=== PATIENT | male | born 1960 | race Caucasian/White ===

== ENCOUNTER 2017-12-04 09:23 | Emergency (ER) | payer BC, SELFPAY ==
[2017-12-04 09:33] VITALS: BP 158/75; PULSE 78; RESP 18; TEMP 36.7; O2SAT 98; BMI 65.4
[2017-12-04 09:59] LABS: Basophils # 0.1 K/mm3 (0-0.2); Basophils % 0.5 % (0.1-2.0); Eosinophils # 0.2 K/mm3 (0.0-0.4); Eosinophils % 2.7 % (0.1-12.0); Hematocrit 45.2 % (42.0-52.0); Lymphocytes # 4.2 K/mm3 (0.7-4.5); Lymphocytes % 47.3 K/mm3 (10-50); Mean Corpuscular HGB Conc 33.2 g/dL (31.8-35.4); Mean Corpuscular Hemoglobin 32.2 pg (27.0-31.2); Mean Platelet Volume 7.5 fl (7.4-10.4); Monocytes # 0.4 K/mm3 (0.1-1.0); Monocytes % 4.4 % (1.7-9.3); Platelet Count 236 K/mm3 (142-424); Red Blood Count 4.66 M/mm3 (4.60-6.20); Red Cell Distribution Width 12.7 % (11.5-17.5); White Blood Count 8.8 K/mm3 (4.8-10.8)
[2017-12-04 10:44] LABS: Alanine Aminotransferase 33 U/L (12-78); Albumin/Globulin Ratio 1.1 (1.1-1.8); Alkaline Phosphatase 61 U/L (46-116); Anion Gap 12.1 mEq/L (5-15); Aspartate Amino Transferase 23 U/L (15-37); Bilirubin,Total 0.4 mg/dL (0.2-1.0); Blood Urea Nitrogen 15 mg/dL (7-18); CKMB Relative Index 1.5 U/L (0-4.0); Calcium 8.6 mg/dL (8.5-10.1); Carbon Dioxide 25 mmol/L (21.0-32.0); Chloride 105 mmol/L (98-107); Creatine Kinase 131 U/L (39-308); Creatine Kinase MB 1.9 mg/ml (0.0-3.6); Creatinine Clearance Estimated 98 mL/min (0-300); Creatinine,Serum 0.95 mg/dL (0.70-1.30); Estimated Glomerular Filt Rate 82 ml/min (>60); GFR (African American) 99 ML/MIN (>60); Globulin 3.7 gm/dl (1.3-3.2); Glucose 94 mg/dL (74-106); Potassium 4.1 mmoL/L (3.5-5.1); Sodium 138 mmol/L (136-145); Thyroid Stimulating Hormone 2.42 uIU/ml (0.358-3.740); Total Protein,Serum 7.7 gm/dL (6.4-8.2); Troponin I < 0.02 ng/ml (0.00-0.06)
--- NOTE | 2017-12-04 11:08 | [facility].EDGENADL ---
ED Disposition Clinical Impression: Muscle strain Hypertension Qualifiers: Hypertension type: essential hypertension Qualified Code(s): I10 - Essential (primary) hypertension Disposition: Home, Self-Care Condition on Discharge: Good Instructions: High Blood Pressure Additional Instructions: Stop smoking. Eat a low-fat, low-salt diet. Follow-up with Dr. Camejo in 2 weeks for blood pressure reevaluation. Keep a log with your blood pressure readings, address, at home, for the next 2 weeks, and take such record to your next appointment. Prescriptions: Lisinopril [Zestril 10mg Tab] 10 mg PO DAILY #30 tab Time of Disposition: 11:09 - Critical Care Critical Care Time: No Attestation: On 12/04/17, the high probability of a clinically significant, sudden or life threatening deterioration of the following system(s) required my full and direct attention, intervention and personal management. The time I documented below is in addition to time spent performing reported procedures but includes the following listed in this critical care notation. Medical Decision Making - Medical Records Medical records reviewed: Yes: I reviewed the patient's medical records. Vital Signs: 12/04/17 09:33 12/04/17 12:09 Temperature 98.0 F 98.6 F Temperature Source Oral Pulse Rate 73 Pulse Rate [Left Radial] 78 Respiratory Rate 18 18 Blood Pressure 126/78 Blood Pressure [Left Arm] 158/75 Blood Pressure Mean [Left Arm] 102 Blood Pressure Source [Left Arm] Automatic Cuff Blood Pressure Position [Left Arm] Sitting 02 Sat by Pulse Oximetry 98 Oxygen Delivery Method Room Air - Lab Data Lab results reviewed: Yes: I reviewed the patient's lab results. Lab Results 12/04/17 09:45: WBC 8.8, RBC 4.66, Hgb 15.0, Hct 45.2, MCV 97.0 H, MCH 32.2 H, MCHC 33.2, RDW 12.7, Plt Count 236, MPV 7.5, Neut % (Auto) 45.0, Lymph % (Auto) 47.3, [place] % (Auto) 4.4, Eos % (Auto) 2.7, Baso % (Auto) 0.5, Neut # (Auto) 4.0, Lymph # (Auto) 4.2, [place] # (Auto) 0.4, Eos # (Auto) 0.2, Baso # (Auto) 0.1 12/04/17 09:45: Sodium 138, Potassium 4.1, Chloride 105, Carbon Dioxide 25, Anion Gap 12.1, BUN 15, Creatinine 0.95, Estimated Creat Clear 98, Estimated GFR 82, Est GFR ( Amer) 99, Glucose 94, Calcium 8.6, Total Bilirubin 0.4, AST 23, ALT 33, Alkaline Phosphatase 61, Total Creatine Kinase 131, CK-MB (CK-2) 1.9, CK-MB (CK-2) Rel Index 1.5, Troponin I < 0.02, Total Protein 7.7, Albumin 4.0, Globulin 3.7 H, Albumin/Globulin Ratio 1.1, TSH 2.42 Result diagrams: 12/04/17 09:45 12/04/17 09:45 Orders (Tests/Meds): ED MEDICATIONS Discontinued Medications Generic Name Dose Route Start Last Admin Trade Name Freq PRN Reason Stop Dose Admin Clonidine HCl 0.2 mg 12/04/17 10:04 12/04/17 10:42 Clonidine 0.2mg Tablet PO 12/04/17 10:05 0.2 mg ONCE ONE Administration - Radiology Data #1 Image(s): Chest Image Reviewed: Yes I reviewed the patient's radiology results, Yes I reviewed the patient's radiology image, Yes I have reviewed radiologist's interpretation Preliminary Findings: Normal/NAD - ECG Data Tracing #1 I reviewed this ECG and interpreted as documented below: ECG normal with no acute: arrhythmias, ischemia, conduction abnormalities, chamber hypertrophy Normal Sinus Rhythm: Yes - Julián Inquiry Pt receiving controlled substance: No - Reevaluation(s) Time: 10:45 Reevaluation #1: Patient appears in no acute distress upon reevaluation, medically stable. General Adult HPI - General Chief complaint: PAIN Stated complaint: Left fingers and left arm hurting,High BP Mode of Arrival: Family Vehicle Limitations: No Limitations Description of Symptoms (Recalled from ER Triage Doc. by RN): PT STATES HE HAS HAD RECENTLY LIFTED FIREWOOD OVER THE WEEKEND, ATTRIBUTING. LEFT ARM AND LEFT 2ND AND 3RD FINGER PAIN TO THAT. ADDITIONALLY STATES THEY TOOK. HIS BP AT WORK AND IT WAS 150'S/70'S AND THEY MADE HIM COME GET MAYRA
--- NOTE | 2017-12-04 11:14 | ED_ITS ---
ED Disposition Clinical Impression: Muscle strain Hypertension Qualifiers: Hypertension type: essential hypertension Qualified Code(s): I10 - Essential ( primary) hypertension Disposition: Home, Self-Care Condition on Discharge: Good Instructions: High Blood Pressure Additional Instructions: Stop smoking. Eat a low-fat, low-salt diet. Follow-up with Dr. Camejo in 2 weeks for blood pressure reevaluation. Keep a log with your blood pressure readings, address, at home, for the next 2 weeks, and take such record to your next appointment. Prescriptions: Lisinopril [Zestril 10mg Tab] 10 mg PO DAILY #30 tab Time of Disposition: 11:09 - Critical Care Critical Care Time: No Attestation: On 12/04/17, the high probability of a clinically significant, sudden or life threatening deterioration of the following system(s) required my full and direct attention, intervention and personal management. The time I documented below is in addition to time spent performing reported procedures but includes the following listed in this critical care notation. Medical Decision Making - Medical Records Medical records reviewed: Yes: I reviewed the patient's medical records. Vital Signs: 12/04/17 09:33 12/04/17 12:09 Temperature 98.0 F 98.6 F Temperature Source Oral Pulse Rate 73 Pulse Rate [Left Radial] 78 Respiratory Rate 18 18 Blood Pressure 126/78 Blood Pressure [Left Arm] 158/75 Blood Pressure Mean [Left Arm] 102 Blood Pressure Source [Left Arm] Automatic Cuff Blood Pressure Position [Left Arm] Sitting 02 Sat by Pulse Oximetry 98 Oxygen Delivery Method Room Air - Lab Data Lab results reviewed: Yes: I reviewed the patient's lab results. Lab Results 12/04/17 09:45: WBC 8.8, RBC 4.66, Hgb 15.0, Hct 45.2, MCV 97.0 H, MCH 32.2 H, MCHC 33.2, RDW 12.7, Plt Count 236, MPV 7.5, Neut % (Auto) 45.0, Lymph % (Auto) 47.3, [place] % (Auto) 4.4, Eos % (Auto) 2.7, Baso % (Auto) 0.5, Neut # (Auto) 4.0 , Lymph # (Auto) 4.2, [place] # (Auto) 0.4, Eos # (Auto) 0.2, Baso # (Auto) 0.1 12/04/17 09:45: Sodium 138, Potassium 4.1, Chloride 105, Carbon Dioxide 25, Anion Gap 12.1, BUN 15, Creatinine 0.95, Estimated Creat Clear 98, Estimated GFR 82, Est GFR ( Amer) 99, Glucose 94, Calcium 8.6, Total Bilirubin 0.4 , AST 23, ALT 33, Alkaline Phosphatase 61, Total Creatine Kinase 131, CK-MB (CK- 2) 1.9, CK-MB (CK-2) Rel Index 1.5, Troponin I < 0.02, Total Protein 7.7, Albumin 4.0, Globulin 3.7 H, Albumin/Globulin Ratio 1.1, TSH 2.42 Result diagrams: 12/04/17 09:45 12/04/17 09:45 Orders (Tests/Meds): ED MEDICATIONS Discontinued Medications Generic Name Dose Route Start Last Admin Trade Name Freq PRN Reason Stop Dose Admin Clonidine HCl 0.2 mg 12/04/17 10:04 12/04/17 10:42 Clonidine 0.2mg Tablet PO 12/04/17 10:05 0.2 mg ONCE ONE Administration - Radiology Data #1 Image(s): Chest Image Reviewed: Yes I reviewed the patient's radiology results, Yes I reviewed the patient's radiology image, Yes I have reviewed radiologist's interpretation Preliminary Findings: Normal/NAD - ECG Data Tracing #1 I reviewed this ECG and interpreted as documented below: ECG normal with no acute: arrhythmias, ischemia, conduction abnormalities, chamber hypertrophy Normal Sinus Rhythm: Yes - Julián Inquiry Pt receiving controlled substance: No
[2017-12-04 12:09] VITALS: BP 126/78; PULSE 73; RESP 18; TEMP 37; O2SAT 97
== END 2017-12-04 12:11 | disposition home or self-care (01) ==
PROVIDERS: Emergency Provider Emergency Medicine
DX: S46.912A Strain of unspecified muscle, fascia and tendon at shoulder and upper arm level, left arm, initial encounter (principal); I10 Essential (primary) hypertension
CPT/HCPCS: 80053; 82550; 82553; 84443; 84484; 85025; 93005; 99281

== ENCOUNTER → 2020-11-20 15:05 | Outpatient (CLI) | payer BC, SELFPAY ==
--- NOTE | 2020-11-20 15:08 | CT_ITS ---
PROCEDURE: CT LUNG SCREENING CLINICAL INDICATION: HX OF NICOTINE DEPENDENCE Current smoker 42 pack year smoking history No prior COMPARISON: No exams were available for comparison TECHNIQUE: The exam was performed on a GE Light Speed [address] scanner using 2.90 mGy CTDI. A low dose helical CT CHEST was performed on a multi-detector scanner. All CT scans at the facility use one or more dose reduction, viz: automated exposure control, ma/kV adjustment per patient size (including targeted exams where dose is matched to indication, i.e. head), or iterative reconstruction technique. The LDCT was performed in a facility that meets the criteria for the screening program. Data regarding this exam was submitted to [employer] which is an approved registry. The order for this exam indicates that it came as a result of a lung cancer screening counseling shard decision-making visit that included all the elements required of such a visit including smoking cessation. The radiologist interpreting this exam meets the [facility] criteria for the LDCT lung cancer screening program. The exam is reported using the Lung-RADS classification scale and reported to the ACR registry. NOTE: This study was performed for the specific purposes of lung cancer screening and is not an alternative to diagnostic chest CT. RADIATION DOSE: CTDI vol(CT dose Index-volume) = 2.90mG DLP (Dose Length Product) = 104.46 mGcm FINDINGS: COPD changes with scattered areas of scarring the. Old granulomatous disease. Mild bronchial thickening. No suspicious pulmonary nodules identified OTHER FINDINGS: Coronary artery calcifications. At T11 and T8 degenerative changes thoracic spine with Schmorl's nodes IMPRESSION: Lung-RADS Category 1 Negative Follow-up: Continue annual screening with LDCT in 12 months Dictated by: Vasile Tejada MD 11/30/2020 05:20 Vasile Tejada MD in [place] 11/30/2020 05:20
== END ==
PROVIDERS: PCP Family Medicine; Visit Provider Family Medicine
DX: Z87.891 Personal history of nicotine dependence (principal); Z12.2 Encounter for screening for malignant neoplasm of respiratory organs
CPT/HCPCS: 71271